=== PATIENT | female | born 1965 | race Caucasian/White ===

== ENCOUNTER 2018-09-14 11:27 | Emergency (ER) | payer BC ==
[~2018-09-14] VITALS: Ht 162.6 cm; Wt 113.6 kg
[~2018-09-14 11:27] MED LIST: ACID REDUCER200 MG PO; AMARYL2 MG PO; AMARYL4 MG PO; ANTIDEPRESSANT; ASPIRIN 81M81 MG/TA2 PO; BENTYL 20MG TAB20 MG PO; CEFTIN500 MG PO; CELEXA40 MG PO; CITALOPRAM20 MG PO; COD LIVER OIL 11 SGL; DICYCLOMINE20 MG PO; DIOVAN HCT; DIOVAN HCT 25 M1 TA1 PO; DIOVAN/HCT 12.51 TA1 PO; EPI EZ PEN1 MG/ML IM; FLEXERIL10 MG PO; FORTAMET1000 MG PO; LEVOTHYROXIN0.125 MG PO; METFORMIN1000 MG PO; MOTRIN800 MG PO; NORCO 325 MG-51 TAB PO; PERCOCET 5/321 UDTAB PO; PREDNISONE20 MG PO; SIMVASTATIN80 MG PO; SYNTHROID0.125 MG/T PO; SYNTHROID0.137 MG PO; TOPROL XL 50MG50 MG PO; TOPROL XL50 MG PO; VICODIN 5/5001 UDTAB PO; VITAMINS; ZOCOR80 MG PO; ZOFRAN 4MG T4 MG/TAB PO; ZOFRAN ODT4 MG PO; ZYRTEC10 MG PO; ZYRTEC5 MG PO; [UNRECOGNIZED DRUG - REMARK]
[2018-09-14] MEDS ORDERED: CLEOCIN HCL300 MG PO (12:14)
[2018-09-14 12:25] VITALS: BP 172/78; PULSE 92; TEMP 98.2
== END 2018-09-14 12:35 | disposition home or self-care (01) ==
LOC: COL.ER 11:27
DX: K02.9 Dental caries, unspecified (principal); I10 Essential (primary) hypertension